=== PATIENT | male | born 1990 | race Hispanic/Latino ===

== ENCOUNTER 2017-03-23 16:33 | Emergency (ER) | payer SELFPAY ==
[2017-03-23] MEDS ORDERED: IBUPROFEN 800 MG TAB ONE (16:56)
[2017-03-23] MEDS ORDERED: TETANUS/DIPHTHERIA TOXOID [ADULT] 0.5 ML VIAL IM ONE (16:57)
== END 2017-03-23 18:07 | disposition left against medical advice (07) ==
LOC: EDH 16:33
DX: S61.213A Laceration without foreign body of left middle finger without damage to nail, initial encounter (principal); Z72.0 Tobacco use; X58.XXXA Exposure to other specified factors, initial encounter; Y93.89 Activity, other specified; Y92.89 Other specified places as the place of occurrence of the external cause; Y99.8 Other external cause status
CPT/HCPCS: 64450; 73140; 90471; 90714